=== PATIENT | female | born 1980 | race American Indian/Alaskan Native ===

== ENCOUNTER 2022-02-23 11:09 | Emergency (ER) | payer SELFPAY ==
[2022-02-23 11:25] VITALS: BP 151/101
[2022-02-23] MEDS ORDERED: MORPHINE 4 MG/1 ML INJ IV ONE (14:51)
[2022-02-23] MEDS ORDERED: ONDANSETRON 4 MG/2 ML INJ IV ONE (14:51)
[2022-02-23] MEDS ORDERED: methylPREDNISolone Sod Suc 125 MG in SODIUM CHLORIDE 0.9% 100 ML IV ONE (14:51)
[2022-02-23] MEDS ORDERED: methylPREDNISolone Sod Succinate 125 MG/2 ML INJ IV ONE (14:52)
--- NOTE | 2022-02-23 15:09 | Emergency Department Report ---
ED General Adult HPI - General Chief complaint: Pain General Stated complaint: LUPUS FLARE UP Time Seen by Provider: 02/23/22 13:42 Source: patient Mode of arrival: Ambulatory Limitations: No Limitations - History of Present Illness Initial comments: 41-year-old female with history of lupus presents to the emergency department with joint pain lupus flare. Patient reports pain all over her body joints, consistent with her lupus flare,. States she has not been under INH stress or triggers but suspects it might be because of the weather change from [place] to [place] which may have triggered this episode. 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 No fever, no chest pain, no shortness of breath, no headache dizziness weakness nausea vomiting abdominal pain. -: Gradual, days(s) Location: upper extremity, lower extremity Severity scale (0 -10): 10 Consistency: constant Improves with: none Worsens with: none - Related Data Home Medications Medication Instructions Recorded Confirmed Last Taken Triamter/Hctz 37.5-25 mg 03/05/15 03/05/15 03/05/15 Previous Rx's Medication Instructions Recorded Last Taken Type Dicyclomine [Bentyl] 20 mg PO QID #20 tablet 03/05/15 Unknown Rx Promethazine [Phenergan TAB] 25 mg PO Q6HR PRN #10 tab 03/05/15 Unknown Rx traMADoL [Ultram 50 MG tab] 50 mg PO ONCE #20 tablet 03/05/15 Unknown Rx HYDROcodone/APAP 5-325 [Bonnie 1 each PO Q6HR PRN #15 tablet 02/23/22 Unknown Rx 5/325] Nitrofurantoin Victoria/M-Cryst 100 mg PO Q12HR #14 capsule 02/23/22 Unknown Rx [Macrobid CAP] Prednisone [predniSONE 10 mg 10 mg PO .TAPER #1 tab.ds.pk 02/23/22 Unknown Rx (6-Day Pack, 21 Tabs)] Allergies Allergy/AdvReac Type Severity Reaction Status Date / Time No Known Allergies Allergy Verified 03/05/15 22:29 ED Review of Systems ROS: Stated complaint: LUPUS FLARE UP Other details as noted in HPI Constitutional: no symptoms reported Eyes: as per HPI ENT: as per HPI Respiratory: no symptoms reported. denies: cough Cardiovascular: denies: chest pain, palpitations Endocrine: denies: excessive sweating, intolerance to cold, intolerance to heat Gastrointestinal: denies: abdominal pain, nausea, vomiting Musculoskeletal: back pain, arthralgia, myalgia. denies: joint swelling Skin: denies: change in color Neurological: denies: headache, weakness, paresthesias Psychiatric: denies: anxiety, visual hallucinations, homicidal thoughts, suicidal thoughts ED Past Medical Hx - Past Medical History Previous Medical History?: Yes Hx Hypertension: Yes Hx Arthritis: Yes (RA) Additional medical history: lupus - Surgical History Additional Surgical History: T.L. hemmeroidectomy. hernia repair age 3 - Social History Smoking Status: Current Some Day Smoker Substance Use Type: None - Medications Home Medications: Home Medications Medication Instructions Recorded Confirmed Last Taken Type Dicyclomine [Bentyl] 20 mg PO QID #20 tablet 03/05/15 Unknown Rx Promethazine [Phenergan TAB] 25 mg PO Q6HR PRN #10 tab 03/05/15 Unknown Rx Triamter/Hctz 37.5-25 mg 03/05/15 03/05/15 03/05/15 History traMADoL [Ultram 50 MG tab] 50 mg PO ONCE #20 tablet 03/05/15 Unknown Rx HYDROcodone/APAP 5-325 [Bonnie 1 each PO Q6HR PRN #15 tablet 02/23/22 Unknown Rx 5/325] Nitrofurantoin Victoria/M-Cryst 100 mg PO Q12HR #14 capsule 02/23/22 Unknown Rx [Macrobid CAP] Prednisone [predniSONE 10 mg 10 mg PO .TAPER #1 tab.ds.pk 02/23/22 Unknown Rx (6-Day Pack, 21 Tabs)] ED Physical Exam - General Limitations: No Limitations General appearance: alert, in no apparent distress - Head Head exam: Present: atraumatic - Eye Eye exam: Present: normal appearance, PERRL Pupils: Present: normal accommodation - ENT ENT exam: Present: normal exam, normal orophraynx - Neck Neck exam: Present: normal inspection, full ROM. Absent: lymphadenopathy - Respiratory Respiratory exam: Present: normal lung sounds bilaterally. Absent: respiratory distress, wheezes - Cardiovascular Cardiovascular Exam: Present: regular rate, normal rhythm - GI/Abdominal GI/Abdominal exam: Present: soft. Absent: distended, tenderness - Extremities Exam Extremities exam: Present: normal inspection, full ROM, normal capillary refill. Absent: tenderness, pedal edema, joint swelling, calf tenderness - Back Exam Back exam: Present: normal inspection, full ROM - Neurological Exam Neurological exam: Present: alert, oriented X3, normal gait - Psychiatric Psychiatric exam: Present: normal affect, normal mood - Skin Skin exam: Present: warm, dry, intact, normal color ED Course Vital Signs 02/23/22 11:23 Temperature 99.4 F Pulse Rate 99 H Respiratory 18 Rate Blood Pressure 151/101 [Left] O2 Sat by Pulse 99 Oximetry ED Medical Decision Making - Lab Data Result diagrams: 02/23/22 15:25 02/23/22 15:25 - Medical Decision Making 41-year-old female with history of lupus presents to the emergency department with joint pain lupus flare. Patient reports pain all over her body joints, consistent with her lupus flare,. States she has not been under INH stress or triggers but suspects it might be because of the weather change from [place] to [place] which may have triggered this episode. 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 No fever, no chest pain, no shortness of breath, no headache dizziness weakness nausea vomiting abdominal pain. Urinalysis positive for 8+ WBCs with leukocytes, will treat with low-dose Macrobid x5 days. Patient ambulating steadily back and forth to the restroom, she reports marked improvement in her symptoms, and her vital signs also stable. One of her ED findings symptom management supportive therapy and follow-up with patient. Prescribed some steroids and hydrocodone for pain. Critical care attestation.: If time is entered above; I have spent that time in minutes in the direct care of this critically ill patient, excluding procedure time. ED Disposition Clinical Impression: Lupus (systemic lupus erythematosus), Arthralgia, Acute cystitis Disposition: HOME / SELF CARE / HOMELESS Is pt being admited?: No Does the pt Need Aspirin: No Condition: Stable Instructions: Systemic Lupus Erythematosus, Adult, Joint Pain, Urinary Tract Infection, Adult Prescriptions: HYDROcodone/APAP 5-325 [Bonnie 5/325] 1 each PO Q6HR PRN #15 tablet PRN Reason: Pain Prednisone [predniSONE 10 mg (6-Day Pack, 21 Tabs)] 10 mg PO .TAPER #1 tab.ds.pk Referrals: PRIMARY CARE, [Primary Care Provider] - 3-5 Days FLO SHERWOOD MD [Staff Physician] - 3-5 Days SHELIA GARCIA MD [Referring] - 3-5 Days
[2022-02-23 15:51] LABS: Basophils # (Auto) 0.1 K/mm3 (0.0-0.1); Basophils % (Auto) 1.4 % (0.0-1.8); Eosinophils # (Auto) 0.1 K/mm3 (0.0-0.4); Eosinophils % (Auto) 1.3 % (0.0-4.3); Hematocrit 29.9 % (30.3-42.9); Hemoglobin 10.1 gm/dl (10.1-14.3); Lymphocytes # (Auto) 2.5 K/mm3 (1.2-5.4); Lymphocytes % (Auto) 31.7 % (13.4-35.0); Mean Corpuscular HGB Conc 34 % (30-34); Mean Corpuscular Volume 82 fl (79-97); Monocytes # (Auto) 0.7 K/mm3 (0.0-0.8); Platelet Count 424 K/mm3 (140-440); Red Blood Count 3.66 M/mm3 (3.65-5.03); Red Cell Distribution Width 17.1 % (13.2-15.2)
[2022-02-23 16:00] LABS: Alanine Aminotransferase 7 units/L (7-56); Albumin 4.7 g/dL (3.9-5); Blood Urea Nitrogen 11 mg/dL (7-17); Calcium 9.4 mg/dL (8.4-10.2); Hemolysis Index 7
[2022-02-23 16:04] LABS: BUN/Creatinine Ratio 18
[2022-02-23 17:15] LABS: Bilirubin,Urine Negative (Negative); Color,Urine Yellow (Yellow)
[2022-02-23 17:16] LABS: Blood,Urine Trace (Negative); PH,Urine 6.5 (5.0-7.0); Urobilinogen,Urine < 2.0 mg/dL (<2.0)
== END 2022-02-23 18:04 | disposition home or self-care (01) ==
LOC: ED 11:09
DX: M32.9 Systemic lupus erythematosus, unspecified (principal); M25.50 Pain in unspecified joint; N30.90 Cystitis, unspecified without hematuria; I10 Essential (primary) hypertension; M19.90 Unspecified osteoarthritis, unspecified site; F17.200 Nicotine dependence, unspecified, uncomplicated
CPT/HCPCS: 36415; 80053; 81001; 85025; 96374; 96375; 99283; J2270; J2405; J2930

== ENCOUNTER 2022-02-25 11:03 | Emergency (ER) | payer SELFPAY ==
[2022-02-25 11:25] VITALS: BP 157/110
== END 2022-02-25 19:00 | disposition left against medical advice (07) ==
LOC: ED 11:03
DX: Z00.00 Encounter for general adult medical examination without abnormal findings (principal); Z53.21 Procedure and treatment not carried out due to patient leaving prior to being seen by health care provider